=== PATIENT | male | born 1985 | race Caucasian/White ===

== ENCOUNTER 2016-12-28 01:05 | Emergency (ER) | payer BC, MEDICAID, SELFPAY ==
[~2016-12-28] VITALS: Ht 193 cm; Wt 111.1 kg
[~2016-12-28 01:05] MED LIST: LEVA500T PO; NO HOME MEDS; OXYC20TA2 PO; tylenol PO
[2016-12-28 01:12] VITALS: BP 137/65
[2016-12-28] MEDS ORDERED: GABA-283 PO (01:22)
[2016-12-28] MEDS ORDERED: OXYCODONE/APAP 5MG/325MG(BULK FOR ED) 1 TABLET PO ONE (02:30)
[2016-12-28] MEDS ORDERED: PERCOCET 5MG/325MG TAB PO ONE (02:30)
== END 2016-12-28 02:39 | disposition home or self-care (01) ==
LOC: M ED 02:13
DX: K64.5 Perianal venous thrombosis (principal); Z85.47 Personal history of malignant neoplasm of testis; F17.210 Nicotine dependence, cigarettes, uncomplicated; Z79.899 Other long term (current) drug therapy

== ENCOUNTER 2016-12-31 13:20 | Emergency (ER) | payer BC, MEDICAID, SELFPAY ==
[~2016-12-31] VITALS: Ht 193 cm; Wt 111.1 kg
[2016-12-31 13:20] VITALS: BP 142/63
[~2016-12-31 13:20] MED LIST changes: +GABA-283 PO
[2016-12-31] MEDS ORDERED: NORCOTAB PO (17:33)
[2016-12-31] MEDS ORDERED: CLEO300C2 PO (17:33)
== END 2016-12-31 13:52 | disposition left against medical advice (07) ==
LOC: M ED 13:51
DX: R68.89 Other general symptoms and signs (principal); Z53.21 Procedure and treatment not carried out due to patient leaving prior to being seen by health care provider

== ENCOUNTER 2016-12-31 14:07 | Emergency (ER) | payer BC, MEDICAID ==
[~2016-12-31] VITALS: Ht 193 cm; Wt 111.1 kg
[2016-12-31] MEDS ORDERED: ONDANSETRON 4MG/2ML VIAL (J2405) IV ONE (15:30)
[2016-12-31] MEDS ORDERED: MORPHINE 4 MG/ML 1ML SYRINGE IV ONE (15:30)
[2016-12-31] MEDS ORDERED: NS 1,000 ML IV ONE (15:30)
[2016-12-31 15:52] LABS: BASO % 0.4 % (0.0-1.0); EOS # 0.1 K/mm3 (0.0-0.50); EOS % 1.3 % (0.0-3.0); LARGE UNSTAINED CELL # 0.1 K/mm3 (0.0-0.4); LARGE UNSTAINED CELL % 1.2 % (0.0-4.0); LYMPH # 1.3 K/mm3 (1.5-4.5); LYMPH % 10.7 % (24.0-44.0); MEAN CORPUSCULAR HEMOGLOBIN 30.6 pg (27.0-33.0); MEAN CORPUSCULAR HGB CONC 35.7 g/dl (32.0-36.5); MEAN CORPUSCULAR VOLUME 85.6 fl (80.0-96.0); MONO # 0.5 K/mm3 (0.0-0.8); NEUTROPHILS # 8.8 K/mm3 (1.8-7.7); NEUTROPHILS % 81.4 % (36.0-66.0); PLATELET COUNT, AUTOMATED 179 k/mm3 (150-450); WHITE BLOOD COUNT 10.8 K/mm3 (4.0-10.0)
[2016-12-31 16:33] LABS: ALBUMIN 3.9 GM/DL (3.2-5.2); ALBUMIN/GLOBULIN RATIO 1.03 (1.00-1.93); ALKALINE PHOSPHATASE 102 U/L (45-117); ALT/SGPT 15 U/L (12-78); ANION GAP 9 MEQ/L (8-16); AST/SGOT 16 U/L (15-37); BILIRUBIN,DIRECT 0.1 MG/DL (0.0-0.2); BILIRUBIN,TOTAL 0.5 MG/DL (0.2-1.0); BLOOD UREA NITROGEN 16 MG/DL (7-18); CALCIUM LEVEL 8.9 MG/DL (8.5-10.1); CARBON DIOXIDE LEVEL 24 MEQ/L (21-32); CHLORIDE LEVEL 108 MEQ/L (98-107); CREATININE FOR GFR 0.72 MG/DL (0.70-1.30); GLOMERULAR FILTRATION RATE > 60.0 (>60); GLUCOSE, FASTING 89 MG/DL (70-105); POTASSIUM SERUM 3.9 MEQ/L (3.5-5.1); SODIUM LEVEL 141 MEQ/L (136-145); TOTAL PROTEIN 7.7 GM/DL (6.4-8.2)
[2016-12-31] MEDS ORDERED: ISOVUE-370 76% 100ML VIAL (Q9967) As Ordered ONE (16:35)
[2016-12-31] MEDS ORDERED: NORCO 5/325MG TABLET (BULK FOR ED) PO ONE (17:30)
[2016-12-31] MEDS ORDERED: CLINDAMYCIN 150 MG CAP PO ONE (17:30)
[2016-12-31] MEDS ORDERED: NORCOTAB PO (17:33)
[2016-12-31] MEDS ORDERED: CLEO300C2 PO (17:33)
[2016-12-31 17:34] VITALS: BP 139/71
--- NOTE | 2016-12-31 18:44 | REP ---
CT examination of the pelvis with IV but without oral contrast: History: Draining rectal abscess. Comparison study: 09/29/2015. CT contrast dose: 100 mL of Isovue [address] findings: Preliminary winterizer radiographs demonstrate a normal bowel gas pattern. There is no evidence of free intraperitoneal air on pelvic images. No ascites is seen. No intrapelvic abscess is observed. Urinary bladder is intact. Prostate and seminal vesicles are unremarkable and symmetric. Scanning through the area of the perineum shows no evidence of perirectal abscess cavity or apparent fistula. There is a small quantity of air in or just anterior to the anal canal. No bony destructive lesion is seen. Impression: No rectal or perirectal abscess seen. No evidence of fistula by CT imaging . Normal bowel gas pattern in the pelvis. Signed by Narciso Kasper MD 12/31/2016 08:45 P
== END 2016-12-31 17:49 | disposition home or self-care (01) ==
LOC: M ED 15:17
DX: K61.1 Rectal abscess (principal); C62.92 Malignant neoplasm of left testis, unspecified whether descended or undescended; F17.200 Nicotine dependence, unspecified, uncomplicated; Z79.899 Other long term (current) drug therapy
CPT/HCPCS: 36415; 72193; 80048; 80076; 85025; 96374; 96375; 99282; J2405; Q9967

== ENCOUNTER → 2017-08-11 | Outpatient (CLI) | payer MEDICAID ==
[~2017-08-11] MED LIST changes: +CLEO300C2 PO; +ISOVUE-370 76% 100ML VIAL (Q9967) As Ordered ONE; +LEVA1TAB2 PO; -LEVA500T PO; +NORCOTAB PO
--- NOTE | 2017-08-11 18:47 | REP ---
CT ABDOMEN AND PELVIS WITH AND WITHOUT CONTRAST: TECHNIQUE: Axial noncontrast images through the abdomen followed by contrast-enhanced images through the abdomen and pelvis using 100 mL Isovue 370 intravenous contrast material, with coronal and sagittal reformations. COMPARISON: 09/29/2015 as well as other prior exams. Visualized lung bases are clear. There is a tiny cyst in the posterior right lobe of the liver without other liver lesion identified. The spleen, adrenals, pancreas, and kidneys are unremarkable in appearance. There is no hydronephrosis. There is no abdominal aortic aneurysm. I do not see evidence of significant periaortic adenopathy. There is no free air or free fluid. There is no bowel wall thickening. The urinary bladder is mildly distended and grossly unremarkable. No anterior abdominal wall defect is seen. Tiny bone island is seen in both the right ischium and left ischium, unchanged. IMPRESSION: No suspicious mass or adenopathy in the abdomen or pelvis. Signed by Alfredito Stone MD 08/12/2017 08:28 P
== END ==
LOC: M RAD 08:49
PROVIDERS: ATTEND Nurse Practitioner Women's Health
DX: Z08 Encounter for follow-up examination after completed treatment for malignant neoplasm (principal); R10.9 Unspecified abdominal pain; Z85.47 Personal history of malignant neoplasm of testis
CPT/HCPCS: 74178; Q9967

== ENCOUNTER → 2017-08-20 | Outpatient (CLI) | payer MEDICAID ==
[2017-08-20 12:15] LABS: MEAN CORPUSCULAR HEMOGLOBIN 29.7 pg (27.0-33.0); MEAN CORPUSCULAR HGB CONC 34.1 g/dl (32.0-36.5); MEAN CORPUSCULAR VOLUME 87.3 fl (80.0-96.0); PLATELET COUNT, AUTOMATED 221 10^3/uL (150-450); RED CELL DISTRIBUTION WIDTH 13.6 % (11.5-14.5); WHITE BLOOD COUNT 12.1 10^3/uL (4.0-10.0)
[2017-08-20 13:00] LABS: ANION GAP 7 MEQ/L (8-16); BLOOD UREA NITROGEN 17 MG/DL (7-18); CALCIUM LEVEL 9.4 MG/DL (8.5-10.1); CARBON DIOXIDE LEVEL 27 MEQ/L (21-32); CHLORIDE LEVEL 107 MEQ/L (98-107); CREATININE FOR GFR 0.99 MG/DL (0.70-1.30); GLOMERULAR FILTRATION RATE > 60.0 (>60); GLUCOSE, FASTING 104 MG/DL (70-105); POTASSIUM SERUM 4.3 MEQ/L (3.5-5.1); SODIUM LEVEL 141 MEQ/L (136-145)
[2017-08-20 13:01] LABS: ALPHA FETOPROTEIN TUMOR QUANT 2.3 NG/ML (<8.1)
[2017-08-21 08:07] LABS: HCG SERUM TUMOR MARKER QUANT < 1 mIU/mL (0-3)
== END ==
LOC: M SMT 09:14
DX: Z85.47 Personal history of malignant neoplasm of testis (principal)
CPT/HCPCS: 83615

== ENCOUNTER 2017-09-17 11:14 | Emergency (ER) | payer MEDICAID ==
[2017-09-17] MEDS: ADACEL/BOOSTRIX VACCINE (DIPHTH/PERTUSS/ACELL/TETANUS)0.5ML SYR (90715) IM (11:39)
== END 2017-09-17 12:16 | disposition home or self-care (01) ==
LOC: M ED 11:14
DX: S61.200A Unspecified open wound of right index finger without damage to nail, initial encounter (principal); W25.XXXA Contact with sharp glass, initial encounter; Y92.009 Unspecified place in unspecified non-institutional (private) residence as the place of occurrence of the external cause; F17.210 Nicotine dependence, cigarettes, uncomplicated
CPT/HCPCS: 90715

== ENCOUNTER → 2017-10-25 | Outpatient (REF) | payer MEDICAID ==
[2017-10-26 11:31] LABS: AMPHETAMINES URINE REFLEX NEGATIVE (NEGATIVE); BARBITURATES URINE REFLEX NEGATIVE (NEGATIVE); BENZODIAZEPINES URINE REFLEX NEGATIVE (NEGATIVE); CANNABINOIDS URINE REFLEX NEGATIVE (NEGATIVE); COCAINE METABOLITE URINE REFLE NEGATIVE (NEGATIVE); METHADONE URINE REFLEX NEGATIVE (NEGATIVE); OPIATES URINE REFLEX NEGATIVE (NEGATIVE); PHENCYCLIDINE URINE REFLEX NEGATIVE (NEGATIVE)
== END ==
LOC: M OUTALCOH 10:28
DX: F12.10 Cannabis abuse, uncomplicated (principal)
CPT/HCPCS: 80307

== ENCOUNTER → 2017-10-26 | Outpatient (CLI) | payer MEDICAID ==
[2017-10-26 18:20] LABS: CHOLESTEROL LEVEL 179 MG/DL (<200); CHOLESTEROL RISK RATIO 3.653 (<5); GLUCOSE, FASTING 87 MG/DL (70-100); HDL CHOLESTEROL 49 MG/DL (>40); LDL CHOLESTEROL 97.2 MG/DL (<100); NON-HDL-C 130 MG/DL; TRIGLYCERIDES LEVEL 164 MG/DL (<150)
== END ==
LOC: M SMT 13:07
DX: Z79.899 Other long term (current) drug therapy (principal)
CPT/HCPCS: 82947

== ENCOUNTER → 2019-03-12 | Outpatient (REF) | payer OTHER ==
[~2019-03-12] MED LIST changes: -GABA-283 PO; +GABA-845 PO; +HYDR-3715 PO; -ISOVUE-370 76% 100ML VIAL (Q9967) As Ordered ONE; -NORCOTAB PO
== END ==
LOC: M SFHCLERA 14:45
PROVIDERS: ATTEND Physician Assistant Medical
DX: L02.413 Cutaneous abscess of right upper limb (principal)

== ENCOUNTER 2019-05-09 18:15 | Emergency (ER) | payer OTHER ==
[~2019-05-09] VITALS: Ht 193 cm; Wt 107.3 kg
[2019-05-09] MEDS ORDERED: ACET160S3 PO (18:23)
[2019-05-09] MEDS ORDERED: IBUP-1720 PO (18:23)
[2019-05-09] MEDS ORDERED: BUPR1FIL5 (18:24)
[2019-05-09] MEDS ORDERED: KETOROLAC 60 MG/2 ML VIAL (J1885) IM ONE (20:45)
[2019-05-09] MEDS ORDERED: ACETAMINOPHEN 325 MG TAB PO ONE (20:45)
[2019-05-09 21:06] LABS: BASO # 0.1 10^3/uL (0.0-0.2); BASO % 0.5 % (0.0-1.0); EOS # 0.3 10^3/uL (0.0-0.5); EOS % 2.1 % (0.0-3.0); HEMOGLOBIN 13.2 g/dl (13.5-17.5); LYMPH # 2.2 10^3/uL (1.5-5.0); LYMPH % 15.1 % (24.0-44.0); MEAN CORPUSCULAR HEMOGLOBIN 29.4 pg (27.0-33.0); MEAN CORPUSCULAR HGB CONC 34.7 g/dl (32.0-36.5); MEAN CORPUSCULAR VOLUME 84.6 fl (80.0-96.0); MONO # 0.8 10^3/uL (0.0-0.8); MONO % 5.4 % (0.0-5.0); NEUTROPHILS % 76.6 % (36.0-66.0); PLATELET COUNT, AUTOMATED 200 10^3/uL (150-450); RED BLOOD COUNT 4.49 10^6/uL (4.30-6.10); WHITE BLOOD COUNT 14.4 10^3/uL (4.0-10.0)
[2019-05-09 21:25] LABS: BLOOD UREA NITROGEN 23 MG/DL (7-18); C REACTIVE PROTEIN QUANTITATIV 8.85 MG/DL (0.00-0.30); CARBON DIOXIDE LEVEL 23 MEQ/L (21-32); CHLORIDE LEVEL 107 MEQ/L (98-107); CREATININE FOR GFR 0.75 MG/DL (0.70-1.30); GLOMERULAR FILTRATION RATE > 60.0 (>60); GLUCOSE, FASTING 106 MG/DL (70-100); POTASSIUM SERUM 3.6 MEQ/L (3.5-5.1); SODIUM LEVEL 139 MEQ/L (136-145)
[2019-05-09 21:39] LABS: ERYTHROCYTE SEDIMENTATION RATE 40 mm/hr (0-15)
[2019-05-09] MEDS ORDERED: BACTRIM 160MG/800MG DS TAB PO ONE (22:00)
--- NOTE | 2019-05-09 23:21 | REPVR ---
EXAM: US Right Non-Vascular Joint or Other Extremity Structure, Limited Upper Extremity EXAM DATE/TIME: 05/09/2019 11:01 PM CLINICAL HISTORY: 33 years old, male; Cellulitis and swelling; Wrist; Right; Additional info: Hand swelling, abscess visualized near wrist TECHNIQUE: Imaging protocol: Right US Non-Vascular Joint or Other Extremity Structure. Limited exam of the upper extremity. COMPARISON: [facility] Fingers 09/17/2017 11:29 AM FINDINGS: Soft tissues: Marked soft tissue thickening medial wrist. Fluid collection demonstrated in the medial aspect of the wrist deep to the discolored area measures 4.9 but 1.5 x 3.5 cm containing particulate material and possible small air bubbles. Findings consistent with suspected abscess. IMPRESSION: 1. Marked soft tissue thickening medial wrist. 2. Fluid collection demonstrated in the medial aspect of the wrist deep to the discolored area measures 4.9 but 1.5 x 3.5 cm containing particulate material and possible small air bubbles. Findings consistent with suspected abscess. Electronically signed by: Tung Soto On 05/09/2019 23:21:16 PM
--- NOTE | 2019-05-09 23:23 | REPVR ---
EXAM: US Duplex Right Upper Extremity Veins, Limited EXAM DATE/TIME: 05/09/2019 11:01 PM CLINICAL HISTORY: 33 years old, male; Swelling (edema) of limb; Lower extremity, right; Additional info: Hand swelling, abscess visualized near wrist TECHNIQUE: Imaging protocol: Real-time Duplex ultrasound of the Right Upper Extremity with 2-D mathews scale, color Doppler flow and spectral waveform analysis with image documentation. Limited exam focused on the right upper extremity veins. COMPARISON: No relevant prior studies available. FINDINGS: Right deep veins: Unremarkable. Axillary and brachial veins are patent throughout without thrombus. Normal Doppler waveforms. Normal compressibility and/or augmentation response. Visualized internal jugular and subclavian veins are patent. Right superficial veins: Unremarkable. Visualized cephalic and basilic veins are patent without thrombus. Soft tissues: Unremarkable. IMPRESSION: No acute findings. No evidence of deep vein thrombosis. Electronically signed by: Tung Soto On 05/09/2019 23:22:43 PM
--- NOTE | 2019-05-10 01:03 | REPVR ---
EXAM: XR Right Wrist EXAM DATE/TIME: 05/10/2019 12:04 AM CLINICAL HISTORY: 33 years old, male; Pain; Wrist; Right; Additional info: Abscess, R/O osteomyelitis TECHNIQUE: Imaging protocol: XR Right wrist. Views: 1 or 2 views. COMPARISON: CR Fingers 09/17/2017 11:29 AM FINDINGS: Bones/joints: No radiographic evidence of acute fracture or dislocation. Alignment anatomic. Joint spaces preserved. No erosive or destructive changes. No lytic or blastic lesion. Soft tissues: Pronounced soft tissue swelling, most severe along the posteromedial aspect of the distal forearm and wrist. IMPRESSION: Pronounced soft tissue swelling. No radiographic evidence of acute osteomyelitis. Electronically signed by: Jordan Posey On 05/10/2019 01:02:12 AM
[2019-05-10] MEDS ORDERED: BACT800T5 PO (01:41)
[2019-05-10 01:42] VITALS: BP 147/66
[2019-05-10] MEDS ORDERED: BACTRIM 160MG/800MG DS TAB PO ONE (01:45)
--- NOTE | 2019-05-15 20:04 | ED PDOC ---
Post-Departure Follow-Up dr mason faxed formal report of right upper extremity us for fu Gerson Clark MD May 15, 2019 20:04
== END 2019-05-10 01:58 | disposition home or self-care (01) ==
LOC: M ED 18:15
DX: L02.413 Cutaneous abscess of right upper limb (principal); F17.210 Nicotine dependence, cigarettes, uncomplicated
CPT/HCPCS: 10060; 36415; 73100; 76882; 80048; 85025; 85652; 86140; 87040; 87070; 87077; 87186; 87205; 93971; 96372; 99283; J1885

== ENCOUNTER 2020-03-22 16:15 | Inpatient (IN) | payer OTHER ==
[~2020-03-22 16:15] MED LIST changes: +ACET160S3 PO; +BACT800T5 PO; +BUPR1FIL5; +IBUP-1720 PO
[2020-03-22] MEDS ORDERED: ZOSYN 3.375GM VIAL (J2543) ONE (19:30)
[2020-03-22] MEDS ORDERED: VANCOMYCIN 1000MG/20ML VIAL ONE (23:34)
[2020-03-22] MEDS ORDERED: MORPHINE 2 MG/ML 1ML VIAL (J2270) ONE (23:39)
[2020-03-22] MEDS ORDERED: LIDOCAINE 2% 100MG/5ML SDV (FOR ANES.) ONE (23:53)
[2020-03-22] MEDS ORDERED: ONDANSETRON 4MG/2ML VIAL ONE (23:53)
[2020-03-22] MEDS ORDERED: fentaNYL 100 MCG/2 ML INJECTION (J3010) ONE (23:53)
[2020-03-22] MEDS ORDERED: MIDAZOLAM INJ 2MG/2ML VIAL (J2250 PER 1MG) ONE (23:53)
[2020-03-22] MEDS ORDERED: propofoL 200 MG/20 ML VIAL ONE (23:53)
[2020-03-23] MEDS ORDERED: ceFAZolin 1GM VIAL (J0690 PER 500MG) ONE (00:40)
[2020-03-23] MEDS ORDERED: HYDROmorphone HCL 2 MG/ML 1ML VIAL (J1170) ONE (00:45)
[2020-03-23] MEDS ORDERED: dexameTHASONE 4 MG/ML 1ML VIAL (J1100 PER 1MG) ONE (01:02)
[2020-03-23] MEDS ORDERED: HYDROMORPHONE HCL 0.5 MG/ 0.5 ML SYRINGE (J1170 PER 1) ONE ×4 (02:05→02:38)
[2020-04-23 11:09] LABS: ERYTHROCYTE SEDIMENTATION RATE 63 mm/hr (0-15)
[2020-04-23 11:25] LABS: BASO % 0.4 % (0.0-1.0); EOS # 0.3 10^3/uL (0.0-0.5); EOS % 2.4 % (0.0-3.0); HEMATOCRIT 38.3 % (42.0-52.0); LYMPH # 2.5 10^3/uL (1.5-5.0); LYMPH % 24.2 % (24.0-44.0); MEAN CORPUSCULAR HEMOGLOBIN 28.3 pg (27.0-33.0); MEAN CORPUSCULAR HGB CONC 33.9 g/dl (32.0-36.5); MEAN CORPUSCULAR VOLUME 83.4 fl (80.0-96.0); MONO # 0.6 10^3/uL (0.0-0.8); NEUTROPHILS # 6.9 10^3/uL (1.5-8.5); NEUTROPHILS % 66.6 % (36.0-66.0); PLATELET COUNT, AUTOMATED 226 10^3/uL (150-450); RED BLOOD COUNT 4.59 10^6/uL (4.30-6.10); WHITE BLOOD COUNT 10.4 10^3/uL (4.0-10.0)
--- NOTE | 2020-04-23 14:19 | ER ---
DATE: 03/22/2020 I saw the patient on 03/22/2020, in the emergency room, around 11 oclock at night. HISTORY OF PRESENT ILLNESS: The patient presented to the emergency room with draining pus from his right hand after developing a blister, after raking the lawn about five to six days ago. He had progressive swelling of his hand and then yesterday, he described having pus come out of the wound around the base of his index finger and between the index and long finger of that right hand, and he thought that was a good thing because it was draining; so he waited until coming to the emergency room this evening because of the progressive swelling, pain, and soreness in that right hand. No fevers. No chills. Not complaining of numbness or tingling in his fingertips, but just complaining of swelling, pain, soreness, and difficulty to use his hand with obvious purulent drainage and malodor. He presented to the emergency room evaluated by the physician chemist assistant, who called me to see him. X-rays had been done showing significant soft tissue swelling and some gas in the soft tissues around the base of the index and long finger. PAST MEDICAL HISTORY: Otherwise fairly unremarkable except for a history of testicular cancer in 2003, where he was treated at [facility] and at [facility] where he underwent an excision of his testicle and retroperitoneal lymph node dissection, and apparently he has been cured now of that. Otherwise, he is healthy. SOCIAL HISTORY: He is a smoker. He is retired from the , but he now works doing general [employer]. REVIEW OF SYSTEMS: Otherwise unremarkable. PHYSICAL EXAMINATION: GENERAL: When I examine him, he is a pleasant male who is lying on the stretcher. He is complaining of isolated right hand pain with obvious malodorous drainage from that hand. VITAL SIGNS: Temperature is 97.9, pulse 59, blood pressure 122/65, respirations 18, O2 saturation 97%. HEENT: Otherwise benign. LUNGS: Clear. HEART: Regular. EXTREMITIES: His right upper extremity revealed a gross purulent drainage emanating between the index and long finger with an open wound down between the two fingers, as well as some purulent material coming just to the radial side of the base of the index finger with swelling based on the radial side of his hand. His fingers were stiff and difficult to flex and extend, but he did not seem to have tenderness along the volar flexor sheath of the index, long, ringer finger, or the thumb. The swelling did extend dorsally between the index finger and the thumb as well, and there was obvious evidence of necrotic skin basically black and whitish skin on the volar aspect around the base of the index finger, extending around dorsally. IMAGING: Radiographs of the right hand as described showing no osteomyelitis, fracture, or acute injury. Soft tissue swelling as noted and some gas is noted in the soft tissues as well. An ultrasound was ordered and the sterile processing technologist did just an ultrasound of the dorsum part of the hand showing some small amount of fluid she described. LABORATORY DATA: Revealed a white count of 10.4, hemoglobin 13, platelets 226,000, sodium 139, potassium 3.4, chloride 104, bicarb 29, BUN 17, creatinine 0.68, glucose 97. Lactic acid was 1.1. A sed rate; however, was 63 and CRP 14.8. Rapid COVID test has been ordered and is pending. IMPRESSION: The patient seems to have a necrotic hand infection. It is possible it is a deep thenar space abscess or a collar button abscess between the index and long finger; however, it does appear to have already been decompressed, but is associated with significant necrosis of the skin and the soft tissues around this, especially the index finger. PLAN: I would recommend emergent irrigation and debridement to help decompress this area and see if there are any other pus pockets that need to be decompressed and debride necrotic tissue. So he understands this, I talked to him about this and this basically takes down the risk of having anesthesia. Obviously the infection is already evident. There is always the risk of damage to nerves and blood vessels, and this may require a significant amount of necrotic debris to be debrided, which I described to him and he understands the need for this. We plan to take him to the operating room immediately so we have a better assessment of the extent of his infection and soft tissue injury. So he signed the consent and we plan to proceed shortly. KARELY
--- NOTE | 2020-05-17 10:36 | RO ---
Date of Operation: 03/23/2020 PREOPERATIVE DIAGNOSIS: Necrotic hand infection right side, possible collar button decompressed abscess, possible deep thenar space abscess. POSTOPERATIVE DIAGNOSIS: Necrotic hand infection on the right with probable collar button abscess that has been ruptured. PROCEDURE: Irrigation and debridement of necrotic tissue, drainage of abscess, and placement of Zeke drains. SURGEON: [place] M.D. ANESTHESIA: General laryngeal mask anesthetic. COMPLICATIONS: None. FINDINGS: He had extensive necrosis of the dermis about 280 degrees around the base of the index finger from between the index and middle finger volarly across the thenar eminence radially. By the time the debridement was over, there was exposure of the neurovascular bundles and the flexor tendons volarly, radially, and ulnarly of the index finger. I could not identify any further pus pockets by palpating deep into the deep thenar space and dorsally. DESCRIPTION OF PROCEDURE: He was given Zosyn and vancomycin in the emergency room and intravenous (IV) access was through the external jugular vein because he had poor IV access. General laryngeal mask anesthetic was established. Tourniquet placed to the right upper arm not inflated. The right upper extremity was then carefully scrubbed and prepped in the usual sterile fashion and elevated. After appropriate time-out the tourniquet was inflated. We began irrigating the open purulent wounds. There was a significant amount of skin sloughing noted and the skin that was sloughing was removed. There was obvious necrotic tissues of the skin bridge on the volar aspect of the base of the index finger where there as no vascularity at all, and this was superficially dissected, and we dissected the skin edges back until we could get to bleeding skin. Obvious necrotic debris that was deep within the wounds was removed with pickups. I was careful not to dissect deeply to avoid iatrogenic injury to any nerves or viable vascular structures. The dermal bridge volarly was essentially excised and essentially we were looking at the flexor tendon mechanism, as well as the neurovascular bundles on either side of the index finger. I carefully palpated down deep volarly along the thumb and it appeared that all of the purulent material had been decompressed from this area, but a Zeke drain was placed, and I also palpated deep on the ventral surface as well along the thenar eminence and placed a Zeke drain there, and all of the purulent material appeared to be decompressed. At this point, I felt that this patient needed further tertiary care and I did not feel comfortable debriding any further tissue; I felt it best be done by a surgeon who would be involved with further definitive management and was probably going to need a reconstructive coverage. He also may in deed require further debridement and drainage of possibly more purulent areas that may be discovered with further testing. So at this point, we concluded the procedure after irrigating all of the wounds. I used a total of 4 liters of sterile saline solution with antibiotics, Zeke drains were placed as mentioned, and the wounds were covered with Xeroform prep gauze, Kerlix, and an Sulaiman wrap. The tourniquet was released well before we completed the procedure looking at the viability of the skin edges. KARELY
[2020-06-01 10:36] LABS: ALBUMIN 3.4 GM/DL (3.2-5.2); ALT/SGPT 15 U/L (12-78); BILIRUBIN,TOTAL 0.4 MG/DL (0.2-1.0); BLOOD UREA NITROGEN 17 MG/DL (7-18); CALCIUM LEVEL 9.2 MG/DL (8.5-10.1); CARBON DIOXIDE LEVEL 29 MEQ/L (21-32); CHLORIDE LEVEL 104 MEQ/L (98-107); CREATININE FOR GFR 0.68 MG/DL (0.70-1.30); GLOMERULAR FILTRATION RATE > 60.0 (>60); GLUCOSE, FASTING 97 MG/DL (70-100); POTASSIUM SERUM 3.4 MEQ/L (3.5-5.1); SODIUM LEVEL 139 MEQ/L (136-145); TOTAL PROTEIN 8.8 GM/DL (6.4-8.2)
== END 2020-03-23 02:42 | disposition short-term general hospital (02) | DRG 361 ==
LOC: M ED 16:15 → M MS5PR 23:18
PROVIDERS: ADMIT Internal Medicine; ATTEND Internal Medicine
PROC: 0HBGXZZ Excision of Left Hand Skin, External Approach (ICD-10-PCS; principal; 2020-03-23)
DX: L02.512 Cutaneous abscess of left hand (principal); F17.200 Nicotine dependence, unspecified, uncomplicated; Z85.47 Personal history of malignant neoplasm of testis

== ENCOUNTER → 2020-03-27 | Outpatient (REF) | payer OTHER ==
[2020-04-25 10:22] LABS: ERYTHROCYTE SEDIMENTATION RATE 25 mm/hr (0-15)
[2020-04-25 10:29] LABS: BASO # 0.1 10^3/uL (0.0-0.2); BASO % 0.6 % (0.0-1.0); EOS # 0.4 10^3/uL (0.0-0.5); EOS % 4.5 % (0.0-3.0); HEMATOCRIT 39.5 % (42.0-52.0); HEMOGLOBIN 13.2 g/dl (13.5-17.5); LYMPH # 3.7 10^3/uL (1.5-5.0); LYMPH % 37.1 % (24.0-44.0); MEAN CORPUSCULAR HEMOGLOBIN 28.3 pg (27.0-33.0); MEAN CORPUSCULAR HGB CONC 33.4 g/dl (32.0-36.5); MEAN CORPUSCULAR VOLUME 84.6 fl (80.0-96.0); MONO # 0.5 10^3/uL (0.0-0.8); MONO % 5.1 % (0.0-5.0); NEUTROPHILS # 5.2 10^3/uL (1.5-8.5); NEUTROPHILS % 52.4 % (36.0-66.0); PLATELET COUNT, AUTOMATED 288 10^3/uL (150-450); RED BLOOD COUNT 4.67 10^6/uL (4.30-6.10); WHITE BLOOD COUNT 9.8 10^3/uL (4.0-10.0)
[2020-05-24 22:54] LABS: ALBUMIN 3.7 GM/DL (3.2-5.2); ALT/SGPT 24 U/L (12-78); BILIRUBIN,TOTAL 0.1 MG/DL (0.2-1.0); BLOOD UREA NITROGEN 29 MG/DL (7-18); C REACTIVE PROTEIN QUANTITATIV 0.88 MG/DL (0.00-0.30); CALCIUM LEVEL 9.2 MG/DL (8.5-10.1); CARBON DIOXIDE LEVEL 27 MEQ/L (21-32); CHLORIDE LEVEL 109 MEQ/L (98-107); GLOMERULAR FILTRATION RATE > 60.0 (>60); GLUCOSE, FASTING 114 MG/DL (70-100); POTASSIUM SERUM 3.7 MEQ/L (3.5-5.1); SODIUM LEVEL 141 MEQ/L (136-145); TOTAL PROTEIN 8.1 GM/DL (6.4-8.2)
== END ==
LOC: M LAB REF 09:00
PROVIDERS: ATTEND Internal Medicine
DX: Z79.2 Long term (current) use of antibiotics (principal)

== ENCOUNTER → 2020-04-01 | Outpatient (REF) | payer OTHER ==
[2020-05-01 14:58] LABS: BASO # 0.1 10^3/uL (0.0-0.2); BASO % 0.7 % (0.0-1.0); EOS # 0.2 10^3/uL (0.0-0.5); EOS % 1.8 % (0.0-3.0); HEMATOCRIT 40.5 % (42.0-52.0); HEMOGLOBIN 13.6 g/dl (13.5-17.5); LYMPH # 2.8 10^3/uL (1.5-5.0); LYMPH % 28.1 % (24.0-44.0); MEAN CORPUSCULAR HEMOGLOBIN 28.6 pg (27.0-33.0); MEAN CORPUSCULAR HGB CONC 33.6 g/dl (32.0-36.5); MEAN CORPUSCULAR VOLUME 85.1 fl (80.0-96.0); MONO # 0.6 10^3/uL (0.0-0.8); MONO % 5.8 % (0.0-5.0); NEUTROPHILS # 6.2 10^3/uL (1.5-8.5); NEUTROPHILS % 63.2 % (36.0-66.0); PLATELET COUNT, AUTOMATED 246 10^3/uL (150-450); RED BLOOD COUNT 4.76 10^6/uL (4.30-6.10); WHITE BLOOD COUNT 9.8 10^3/uL (4.0-10.0)
[2020-05-01 15:02] LABS: ERYTHROCYTE SEDIMENTATION RATE 21 mm/hr (0-15)
[2020-05-14 13:28] LABS: C REACTIVE PROTEIN QUANTITATIV 0.31 MG/DL (0.00-0.30)
== END ==
LOC: M SHH 09:32
PROVIDERS: ATTEND Internal Medicine
DX: L08.9 Local infection of the skin and subcutaneous tissue, unspecified (principal); Z79.2 Long term (current) use of antibiotics

== ENCOUNTER → 2020-04-08 | Outpatient (REF) | payer OTHER ==
[2020-05-25 20:00] LABS: BASO # 0.1 10^3/uL (0.0-0.2); BASO % 0.7 % (0.0-1.0); EOS # 0.3 10^3/uL (0.0-0.5); ERYTHROCYTE SEDIMENTATION RATE 17 mm/hr (0-15); HEMATOCRIT 40.3 % (42.0-52.0); HEMOGLOBIN 13.5 g/dl (13.5-17.5); LYMPH # 2.4 10^3/uL (1.5-5.0); LYMPH % 29.3 % (24.0-44.0); MEAN CORPUSCULAR HGB CONC 33.5 g/dl (32.0-36.5); MEAN CORPUSCULAR VOLUME 86.7 fl (80.0-96.0); MONO # 0.5 10^3/uL (0.0-0.8); MONO % 5.7 % (0.0-5.0); NEUTROPHILS % 60.9 % (36.0-66.0); PLATELET COUNT, AUTOMATED 218 10^3/uL (150-450); RED BLOOD COUNT 4.65 10^6/uL (4.30-6.10); WHITE BLOOD COUNT 8.3 10^3/uL (4.0-10.0)
[2020-06-03 23:52] LABS: ALBUMIN 4.1 GM/DL (3.2-5.2); ALT/SGPT 35 U/L (12-78); BILIRUBIN,TOTAL 0.3 MG/DL (0.2-1.0); BLOOD UREA NITROGEN 28 MG/DL (7-18); CALCIUM LEVEL 9.2 MG/DL (8.5-10.1); CARBON DIOXIDE LEVEL 26 MEQ/L (21-32); CHLORIDE LEVEL 107 MEQ/L (98-107); CREATININE FOR GFR 0.89 MG/DL (0.70-1.30); GLOMERULAR FILTRATION RATE > 60.0 (>60); GLUCOSE, FASTING 99 MG/DL (70-100); POTASSIUM SERUM 3.7 MEQ/L (3.5-5.1); SODIUM LEVEL 138 MEQ/L (136-145); TOTAL PROTEIN 7.8 GM/DL (6.4-8.2)
== END ==
LOC: M SHH 12:15
PROVIDERS: ATTEND Internal Medicine
DX: L08.9 Local infection of the skin and subcutaneous tissue, unspecified (principal); Z79.2 Long term (current) use of antibiotics

== ENCOUNTER → 2020-04-15 | Outpatient (REF) | payer OTHER ==
[2020-04-15 18:28] LABS: ALT/SGPT 26 U/L (12-78); BILIRUBIN,TOTAL 0.3 MG/DL (0.2-1.0); BLOOD UREA NITROGEN 20 MG/DL (7-18); C REACTIVE PROTEIN QUANTITATIV 2.73 MG/DL (0.00-0.30); CARBON DIOXIDE LEVEL 27 MEQ/L (21-32); CHLORIDE LEVEL 106 MEQ/L (98-107); CREATININE FOR GFR 0.82 MG/DL (0.70-1.30); GLOMERULAR FILTRATION RATE > 60.0 (>60); GLUCOSE, FASTING 83 MG/DL (70-100); POTASSIUM SERUM 3.4 MEQ/L (3.5-5.1); SODIUM LEVEL 140 MEQ/L (136-145); TOTAL PROTEIN 7.9 GM/DL (6.4-8.2)
[2020-04-15 18:30] LABS: BASO % 0.9 % (0.0-1.0); EOS % 0.9 % (0.0-3.0); HEMATOCRIT 39.4 % (42.0-52.0); HEMOGLOBIN 13.2 g/dl (13.5-17.5); LYMPH % 56.5 % (24.0-44.0); MEAN CORPUSCULAR HEMOGLOBIN 28.4 pg (27.0-33.0); MEAN CORPUSCULAR HGB CONC 33.5 g/dl (32.0-36.5); MEAN CORPUSCULAR VOLUME 84.9 fl (80.0-96.0); NEUTROPHILS % 28.7 % (36.0-66.0); RED BLOOD COUNT 4.64 10^6/uL (4.30-6.10); WHITE BLOOD COUNT 1.1 10^3/uL (4.0-10.0)
[2020-04-15 18:31] LABS: LYMPH # 0.6 10^3/uL (1.5-5.0); MONO # 0.1 10^3/uL (0.0-0.8)
[2020-04-15 18:59] LABS: NEUTROPHILS # 0.3 10^3/uL (1.5-8.5); PLATELET COUNT, AUTOMATED 64 10^3/uL (150-450)
[2020-04-15 21:01] LABS: ERYTHROCYTE SEDIMENTATION RATE 33 mm/hr (0-15)
== END ==
LOC: M SHH 17:30
PROVIDERS: ATTEND Internal Medicine
DX: L08.9 Local infection of the skin and subcutaneous tissue, unspecified (principal); Z79.2 Long term (current) use of antibiotics